=== PATIENT | male | born 1980 | race Caucasian/White ===

== ENCOUNTER 2017-02-20 12:35 | Emergency (ER) | payer OTHER ==
[2017-02-20] MEDS ORDERED: DELTASONE 20 MG PO ONE (13:32)
[2017-02-20] MEDS ORDERED: Vistaril 50 MG/ML IM ONE ×2 (13:32→13:36)
[2017-02-20 13:34] VITALS: BP 157/83; PULSE 79; O2SAT 94
[2017-02-20] MEDS ORDERED: DELTASONE 20 MG ONE (13:36)
--- NOTE | 2017-02-20 13:52 | ERPHSYRPT ---
- History of Present Illness Time Seen by Provider: 02/20/17 13:24 Source: patient Patient Subjective Stated Complaint: "I started getting a rash on thu. it didn' t get bad until . i have not taken anything for it" Triage Nursing Assessment: aox3, breathing easy unlabored, skin pink warm dry with red raised rash noted to back. bilat arms, legs, chest, abd, hive like rash noted to bilat arms Physician History: CC: rash Hx: 36 y/o healthy male with itching rash since Thu. He sat on a friend's couch. He slept in normal pajama pants and shirt. He has severe itching on rash , all over back. No wheezing or diff breathing. No V/D. No swelling. No known cause. No hx of this in the past. No hx of liver disease. Recently released from [facility]. No meds. Quality: itchy Severity: moderate, severe Location: generalized Allergies/Adverse Reactions: No Known Drug Allergies Allergy (Unverified 02/20/17 12:54) - Review of Systems Constitutional: No Fever, No Chills Eyes: No Symptoms Ears, Nose, & Throat: No Symptoms, No Mouth Swelling Respiratory: No Dyspnea, No Wheezing Cardiac: No Chest Pain Abdominal/Gastrointestinal: No Abdominal Pain, No Nausea, No Vomiting, No Diarrhea Skin: Pruritis, Rash All Other Systems: Reviewed and Negative - Past Medical History Pertinent Past Medical History: Yes Psycho-Social History: Depression - Past Surgical History Past Surgical History: Yes Other Surgical History: gallbladder - Social History Smoking Status: Current every day smoker How long have you smoked: 25 Drug Use: none Patient Lives Alone: Yes - Nursing Vital Signs Nursing Vital Signs: Initial Vital Signs Temperature 98.4 F 02/20/17 12:48 Pulse Rate 86 02/20/17 12:48 Respiratory Rate 14 02/20/17 12:48 Blood Pressure 144/99 02/20/17 12:48 O2 Sat by Pulse Oximetry 95 02/20/17 12:48 Pain Scale Pain Intensity 0 - Physical Exam General Appearance: alert Eye Exam: PERRL/EOMI Ears, Nose, Throat Exam: moist mucous membranes Neck Exam: normal inspection, non-tender, supple Respiratory Exam: normal breath sounds, No wheezing Cardiovascular Exam: regular rate/rhythm Gastrointestinal/Abdomen Exam: soft, No tenderness, No distention Male Genitalia Exam: normal genitalia Extremity Exam: normal inspection, normal range of motion Neurologic Exam: alert, oriented x 3, cooperative Skin Exam: warm, dry, rash (erythematous urticarial patches on arms, legs, trunk sparing palms. Some on back are more fine and excoriated. No vesicles. Spares palms and soles.) SpO2 Interpretation: normal SpO2: 94 Oxygen Delivery: Room Air - Course Nursing assessment & vital signs reviewed: Yes Ordered Tests: Medication Summary Discontinued Medications Generic Name Dose Route Start Last Admin Trade Name Freq PRN Reason Stop Dose Admin Hydroxyzine HCl 50 mg 02/20/17 13:32 02/20/17 13:38 Vistaril 50 Mg/Ml IM 02/20/17 13:33 50 mg STAT ONE Administration Hydroxyzine HCl Confirm 02/20/17 13:36 Vistaril 50 Mg/Ml Administered 02/20/17 13:37 Dose 50 mg IM .STK-MED ONE Prednisone 60 mg 02/20/17 13:32 02/20/17 13:42 Deltasone 20 Mg PO 02/20/17 13:33 60 mg STAT ONE Administration Prednisone Confirm 02/20/17 13:36 Deltasone 20 Mg Administered 02/20/17 13:37 Dose 60 mg .ROUTE .STK-MED ONE - Progress Progress Note: 02/20/17 13:50 Does not appear to be consistent with bed bugs. No etiology known. Not zoster as crosses dermatomes. Will treat as urticaria. Hydroxyzine and prednisone given. Instr given. Counseled pt/family regarding: diagnosis, need for follow-up - Departure Time of Disposition: 13:50 Departure Disposition: Home Clinical Impression: Urticaria Condition: Stable Critical Care Time: No Referrals: DOCTOR,NO FAMILY [Primary Care Provider] - Instructions: Hives Additional Instructions: Rx hydroxyzine. Rx prednisone. Aveeno oatmeal baths. Return for trouble breathing or concerns. Follow up next week with a family doctor. Prescriptions: Hydroxyzine HCl 1 tab PO Q6H PRN PRN #24 tablet PRN Reason: rash,rest Prednisone 10 mg [Deltasone 10 mg] 0 mg PO UD #32 tablet
== END 2017-02-20 13:57 | disposition home or self-care (01) ==
LOC: ED 12:35
DX: L50.9 Urticaria, unspecified (principal)
CPT/HCPCS: 96372; 99284; J3410; J7506